=== PATIENT | female | born 1980 ===

== ENCOUNTER 2025-04-28 07:15 | Inpatient (IN) | payer OTHER ==
[~2025-04-28] VITALS: Ht 167.6 cm; Wt 106.6 kg
[2025-04-28 07:25] VITALS: BP 114/73
[2025-04-28] MEDS ORDERED: JENTADUETO 2.51 EAC2 PO (07:26)
[2025-04-28] MEDS ORDERED: IRON325 MG PO (07:26)
[2025-04-28] MEDS ORDERED: JARDIANCE25 MG PO (07:26)
[2025-04-28 07:42] LABS: URINE APPEARANCE Clear; URINE BILIRRUBIN Negative (NEGATIVE); URINE BLOOD Negative; URINE COLOR Yellow; URINE GLUCOSE Negative (NEGATIVE); URINE KETONE Negative (NEGATIVE); URINE LEUKOCYTE Trace; URINE NITRATE Negative; URINE PROTEIN Negative (NEGATIVE); URINE UROBILINOGEN 0.2 E.U./dl
[2025-04-28 07:43] LABS: URINE BACTERIA 1227.4 uL (0.0-1933); URINE EPITHELIAL CELLS 39.5 uL (0.0-38.8); URINE WBC 33.8 uL (0.0-23.2)
[2025-04-28 07:46] LABS: BASO % 0.5 % (0.1-1.2); EOS # 0.16 (0.04-0.54); EOS % 2.9 % (0.7-7.0); LYMPH # 1.44 (1.18-3.74); LYMPH % 25.9 % (19.3-53.1); MEAN PLATELET VOLUME 10.50 fl (9.4-12.4); MONO # 0.39 (0.24-0.82); MONO % 7.0 % (4.7-12.5); NEUT # 3.53 (1.56-6.13); NEUT % 63.3 % (34.0-71.1); RED CELL DISTRIBUTION WIDTH 15.9 % (11.6-14.4)
[2025-04-28 08:02] LABS: INR 1.0
[2025-04-28 08:05] LABS: ALT/SGPT 15.0 U/L (12-78); AST/SGOT 11.0 U/L (15-37); BILIRUBIN TOTAL 0.33 mg/dL (0.3-1.2); BUN CREA RATIO 17.0 (7.0-25.0); CREATININE SERUM 0.54 mg/dL (0.55-1.02); GFR 123.22; GLOBULINA 3.7 G/DL (2.4-3.5); GLUCOSE FASTING 120.0 mg/dL (65-100); OSMOLALITY SERUM 283.0 MOSM/KG (275-295)
[2025-04-28 08:28] LABS: URINE CAST 0.43 uL (0.0-1.40); URINE RBC 1.1 uL (0.0-20.8)
[2025-05-03] MEDS ORDERED: POVIDONE-IODINE 118 ML BOTT TOP ONE (19:45)
[2025-05-03] MEDS ORDERED: SUGAMMADEX SODIUM 200 MG/2 ML VIAL IV ONE (19:45)
[2025-05-03] MEDS ORDERED: CEFOXITIN SODIUM 1,000 MG VIAL IV ONE (19:45)
[2025-05-03] MEDS ORDERED: MORPHINE SULFATE 4 MG/ML VIAL IV ONE ×2 (22:05→22:35)
[2025-05-03] MEDS ORDERED: MORPHINE SULFATE 4 MG/ML CARTRIDGE IV PRN (23:00)
[2025-05-03] MEDS ORDERED: RINGERS SOLUTION,LACTATED 1,000 ML IV SCH (23:15)
[2025-05-04 01:08] VITALS: BP 115/69
[2025-05-04 08:27] VITALS: BP 135/72
[2025-05-04] MEDS ORDERED: OxyCODONE HCL 5 MG TABLET (ROXICODONE) PO PRN (09:00)
[2025-05-04 13:24] VITALS: BP 118/72
[2025-05-04 17:00] VITALS: BP 121/71
[2025-05-04 20:30] VITALS: BP 121/72
[2025-05-05 00:11] VITALS: BP 132/67
[2025-05-05 08:00] VITALS: BP 116/68
[2025-05-05] MEDS ORDERED: MINERAL OIL 30 ML BLIST.PACK PO STA (17:53)
[2025-05-05] MEDS ORDERED: MAGNESIUM HYDROXIDE 30 ML BLIST.PACK PO STA (17:54)
[2025-05-05 18:53] VITALS: BP 127/78
== END 2025-05-05 19:14 | disposition home or self-care (01) | DRG 512 ==
LOC: ADM 07:15 → EDSTATUS 07:15 → OB/GYN 05-03 07:15
PROVIDERS: ADMIT Obstetrics & Gynecology Obstetrics; ATTEND Obstetrics & Gynecology Obstetrics
PROC: 0UB10ZZ Excision of Left Ovary, Open Approach (ICD-10-PCS; 2025-05-03)
PROC: 0UT90ZL Resection of Uterus, Supracervical, Open Approach (ICD-10-PCS; principal; 2025-05-03 16:00)
DX: C54.1 Malignant neoplasm of endometrium (principal); N84.0 Polyp of corpus uteri